=== PATIENT | female | born 1995 | race Caucasian/White ===

== ENCOUNTER → 2016-03-28 | Outpatient (CLI) | payer OTHER ==
--- NOTE | 2016-03-28 21:00 | REP ---
Clinical: Anatomical evaluation. Comparison: 01/02/2016 . Findings: Examination demonstrates a single live intrauterine in cephalic presentation. motion is identified by technologist. Placenta is noted posteriorly and grade one without evidence for placenta previa or abruption. Amniotic fluid volume is normal. Cervix measures 4.2 cm in length and appears closed. Nuchal cord cannot be excluded Gestational age by LMP 32 weeks 6 days with HILL 05/17/2016 . Gestational age by current measurements 35 weeks 3 days with HILL 04/29/2016 . Amniotic fluid index equals 14.4 cm (8.3 - 24.5) FHR equals 133 beats per minute. BPD 9.0 36 weeks 4 days HC 32.8 37 weeks 2 days AC 32.8 36 weeks 5 days FL 6.5 33 weeks 3 days HL 5.7 32 weeks 6 days HC/AC ratio 1.00 Estimated weight 2813 grams ( greater than 97th percentile). Anatomical assessment demonstrates normal structures including cranium, choroid plexus, cavum, cerebellum/posterior fossa, facial features, lungs, four-chamber heart/ventricular outflow tracts, diaphragm, stomach, cord insertion/three-vessel cord, kidneys/bladder, and extremities. Impression: Single live advanced gestation demonstrating greater than expected interval growth. Anatomical assessment is normal. Signed by Dick Infante MD 03/28/2016 08:52 P
== END ==
LOC: M RAD 13:47
PROVIDERS: ATTEND Advanced Practice Midwife
DX: O26.843 Uterine size-date discrepancy, third trimester (principal)

== ENCOUNTER → 2016-04-23 | Outpatient (REF) | payer OTHER | LOC: M LAB REF 17:14 | PROVIDERS: ATTEND Advanced Practice Midwife | DX: Z34.83 Encounter for supervision of other normal pregnancy, third trimester (principal) ==

== ENCOUNTER → 2016-04-25 | Outpatient (CLI) | payer OTHER ==
--- NOTE | 2016-04-26 04:07 | REP ---
Clinical: Growth evaluation. Comparison: 03/28/2016 . Findings: Examination demonstrates a single live intrauterine in cephalic presentation. motion is identified by technologist. Placenta is noted posteriorly and grade II without evidence for placenta previa or abruption. Amniotic fluid volume is normal. Nuchal cord cannot be excluded. Gestational age by LMP 36 weeks 6 days with HILL 05/17/2016 . Gestational age by current measurements 39 weeks 0 days with HILL 05/02/2016 . FHR equals 131 beats per minute. BPD 9.5 cm 38 weeks 6 days HC 34.5 cm 39 weeks 6 days AC 37.9 cm 41 weeks 6 days FL 7.0 cm 35 weeks 6 days HL 6.7 cm 38 weeks 5 days HC/AC ratio 0.91 Estimated weight 3978 grams (> 97% based on age by LMP). Amniotic fluid index equals 13.0 cm. Umbilical cord SD ratio equals 2.06. Anatomical assessment is limited due to age, but small scrotal hydroceles cannot be excluded. Impression: 1. Single live advanced gestation in cephalic presentation demonstrating greater than expected growth based on age by LMP. 2. Nuchal cord cannot be excluded. 3. Small scrotal hydroceles cannot be excluded and may warrant follow-up examination Signed by Dick Infante MD 04/26/2016 03:59 A
== END ==
LOC: M RAD 15:34
PROVIDERS: ATTEND Obstetrics & Gynecology
DX: O26.843 Uterine size-date discrepancy, third trimester (principal)

== ENCOUNTER 2016-05-10 16:52 | Inpatient (IN) | payer MEDICAID, OTHER ==
[~2016-05-10] VITALS: Ht 160 cm; Wt 104.0 kg
[2016-05-10 17:06] VITALS: BP 136/86
[2016-05-10] MEDS ORDERED: PRENTAB9 PO (17:11)
[2016-05-10] MEDS ORDERED: LACTATED RINGER'S 1000 ML IV STA (17:34)
[2016-05-10] MEDS ORDERED: PROMETHAZINE INJ 25 MG/ML VIAL (J2550) IV PRN (17:45)
[2016-05-10] MEDS ORDERED: BUTORPHANOL 2 MG/ML INJ (J0595) IV PRN (17:45)
--- NOTE | 2016-05-10 17:57 | HPE ---
DATE OF ADMISSION: 05/10/2016 HISTORY OF PRESENT ILLNESS: A 20-year-old 1, estimated date of delivery 05/17/2016, here at 39 weeks for elective induction of labor for suspected macrosomia. Denies regular contractions, loss of fluid or bleeding. Fetus is active. Last normal menstrual period 08/11/2015, for estimated date of delivery ([facility]) 05/17/2016. Sonogram at 11 weeks confirmed her date. Anatomy scan within normal limits. Growth sonogram on April 25 showed estimated weight 3978 grams greater than 97th percentile. ALLERGIES: No known drug allergies. MEDICAL-SURGICAL HISTORY: Polycystic ovary syndrome (PCOS) FAMILY HISTORY: Diabetes, hypertension, varicosities and thyroid dysfunction. SOCIAL HISTORY: Single. Father of the baby and family supportive. Denies tobacco, alcohol, drugs or abuse. OBJECTIVE: Prepregnancy weight 185, total weight gain 59 pounds. O negative, antibody negative, received RhoGAM, rubella immune, VDRL, hepatitis B, hepatitis C, HIV, gonorrhea and Chlamydia all negative. One-hour glucose was 83. Group B strep is negative. PHYSICAL EXAMINATION: VITAL SIGNS: Stable. GENERAL: No apparent distress. CARDIAC: Heart rate is regular. LUNGS: Respirations are easy. ABDOMEN: Soft, gravid, longitudinal lie. Rare contractions. heart 145, moderate variability with accelerations. Cervix is 2 cm, 50% effaced, minus three, soft, cephalic. ASSESSMENT: Primipara at term, suspected macrosomia for induction of labor, category one tracing. PLAN: Admit per consult, misoprostol cervical ripening, labor ad bel.
[2016-05-10] MEDS ORDERED: miSOPROStol 50 MCG 1/2 TAB (S0191) PO SCH (18:00)
[2016-05-10 18:36] LABS: MEAN CORPUSCULAR HEMOGLOBIN 27.4 pg (27.0-33.0); MEAN CORPUSCULAR HGB CONC 33.7 g/dl (32.0-36.5); MEAN CORPUSCULAR VOLUME 81.3 fl (80.0-96.0); RED CELL DISTRIBUTION WIDTH 15.2 % (11.5-14.5); WHITE BLOOD COUNT 10.9 K/mm3 (4.0-10.0)
[2016-05-10 18:37] VITALS: BP 128/82
[2016-05-10 19:26] LABS: ALT/SGPT 11 U/L (12-78); AST/SGOT 31 U/L (15-37); BILIRUBIN,TOTAL 0.2 MG/DL (0.2-1.0); CREATININE FOR GFR 0.69 MG/DL (0.55-1.02); URIC ACID 4.3 MG/DL (2.6-6.0)
[2016-05-10 20:03] VITALS: BP 115/65
[2016-05-10] MEDS ORDERED: hydrOXYzine 50 MG TAB PO SCH (21:00)
[2016-05-10 21:15] VITALS: BP 122/70
[2016-05-10] MEDS: LR 1,000 ML IV SCH (22:33)
[2016-05-10] MEDS ORDERED: OXYTOCIN DRIP 30 UNITS in APPROPRIATE DILUENT 1 EA IV SCH (22:45)
[2016-05-11] VITALS (28 sets, daily range): BP systolic 104–159; BP diastolic 55–92
[2016-05-11] MEDS ORDERED: FENTANYL 2MCG/ML ROPIVACAINE 0.2% NACL 250 ML CADD As Ordered ONE (00:36)
[2016-05-11] MEDS ORDERED: BUTORPHANOL 2 MG/ML INJ (J0595) IV ONE (00:45)
[2016-05-11] MEDS ORDERED: LACTATED RINGER'S 1000 ML IV PRN (02:00)
[2016-05-11] MEDS ORDERED: diphenhydrAMINE INJ 50MG/ML VIAL (J1200) IV PRN (02:00)
[2016-05-11] MEDS ORDERED: ePHEDrine SULFATE 25 MG/5 ML(5MG/ML) SYRINGE IV PRN (02:00)
[2016-05-11] MEDS ORDERED: REFRIGERATOR IV KEYS XX PRN (02:00)
[2016-05-11] MEDS ORDERED: FENTANYL/ROPIVACAINE/NACL CADD 250 ML EPIDURAL SCH (02:00)
[2016-05-11] MEDS ORDERED: EPIDURAL/PCA KEYS XX PRN (02:00)
[2016-05-11] MEDS ORDERED: ONDANSETRON 4MG/2ML VIAL (J2405) IV PRN ×3 (02:00→14:00)
[2016-05-11] MEDS ORDERED: EPIDURAL COMMENT XX SCH (02:00)
[2016-05-11] MEDS ORDERED: NALOXONE INJ 0.4 MG/1 ML VIAL (J2310) IV PRN ×3 (02:00→12:45)
[2016-05-11] MEDS: LR 1,000 ML IV SCH ×3 (06:33→21:57)
[2016-05-11] MEDS ORDERED: ACETAMINOPHEN 500 MG TAB As Ordered ONE (09:32)
[2016-05-11] MEDS ORDERED: ACETAMINOPHEN 500 MG TAB PO PRN (09:45)
[2016-05-11] MEDS ORDERED: BICITRA 30ML SOLN UDC PO ONE (11:30)
[2016-05-11] MEDS ORDERED: MORPHINE PRES-FREE INJ 10 MG/10 ML VIAL (J2274) As Ordered ONE (12:03)
[2016-05-11] MEDS ORDERED: OXYTOCIN INJ 10 UNITS/ML VIAL (J2590) As Ordered ONE ×2 (12:04→12:43)
[2016-05-11] MEDS ORDERED: SODIUM BICARBONATE 8.4% INJ 50MEQ 50 ML VIAL As Ordered ONE (12:09)
[2016-05-11] MEDS ORDERED: LIDOCAINE 2% W/EPIN INJ 20ML **PRES FREE As Ordered ONE (12:09)
[2016-05-11] MEDS ORDERED: METOCLOPRAMIDE INJ 10MG/2ML VIAL (J2765) IV PRN (12:45)
[2016-05-11] MEDS ORDERED: NALBUPHINE HCL 10 MG/ML AMP (J2300) IV PRN ×2 (12:45→14:00)
[2016-05-11] MEDS ORDERED: PHYTONADIONE 1 MG/0.5 ML SYRINGE (J3430) IM ONE (13:00)
[2016-05-11] MEDS ORDERED: HEPATITIS B VAC *BIRTH DOSE ONLY*(ENGERIX) 10 MCG/0.5 ML SYRINGE IM ONE (13:00)
[2016-05-11] MEDS ORDERED: ERYTHROMYCIN OPHTH OINT OU ONE (13:00)
[2016-05-11 13:04] LABS: CORD GAS O2 SAT A 28.6 %; CORD GAS PCO2 A 50.6 mmHg; CORD GAS PH A 7.311 UNITS; CORD GAS PO2 A 15.1 mmHg; CORD GAS SBC A 21.1 MEQ/L; CORD GAS TCO2 A 26.5 MEQ/L
[2016-05-11 13:06] LABS: CORD GAS ABE V -3.1; CORD GAS HCO3 V 22.8 MEQ/L; CORD GAS O2 SAT V 37.3 %; CORD GAS PCO2 V 43.5 mmHg; CORD GAS PH V 7.337 UNITS; CORD GAS PO2 V 17.5 mmHg; CORD GAS SBC V 20.4 MEQ/L; CORD GAS TCO2 V 24.1 MEQ/L
[2016-05-11] MEDS ORDERED: fentaNYL 100 MCG/2 ML INJECTION (J3010) As Ordered ONE (13:48)
[2016-05-11] MEDS ORDERED: MOM 30ML SUSPENSION UDC PO PRN (14:00)
[2016-05-11] MEDS ORDERED: MEASLES,MUMPS,RUBELLA VACCINE INJ (MMR-II) (90707) SC SCH (14:00)
[2016-05-11] MEDS ORDERED: MEPERIDINE INJ 25 MG/ML VIAL (J2175) IV PRN (14:00)
[2016-05-11] MEDS ORDERED: OXYTOCIN DRIP 30 UNITS in APPROPRIATE DILUENT 1 EA IV ONE (14:00)
[2016-05-11] MEDS ORDERED: fentaNYL 100 MCG/2 ML INJECTION (J3010) IV PRN (14:00)
[2016-05-11] MEDS ORDERED: KETOROLAC 30 MG/ML VIAL (J1885) IV PRN (14:00)
[2016-05-11] MEDS ORDERED: RHOGAM 300 MCG (1500 IU) INJ (J2790) IM SCH (14:00)
[2016-05-11] MEDS ORDERED: IBUPROFEN 800 MG TAB As Ordered ONE (14:11)
[2016-05-11] MEDS ORDERED: ACETAMINOPHEN 500 MG TAB PO ONE (14:15)
[2016-05-11] MEDS ORDERED: IBUPROFEN 800 MG TAB PO ONE (14:30)
[2016-05-11] MEDS ORDERED: IBUPROFEN 800 MG TAB PO SCH (14:30)
[2016-05-11] MEDS: AMPICILLIN SOD/SULBACTAM SOD 3 GM in D5W MINI-BAG PLUS 100 ML IV SCH ×2 (15:20→22:04)
--- NOTE | 2016-05-11 17:02 | RO ---
DATE OF PROCEDURE: 05/11/2016 PREPROCEDURE DIAGNOSIS: Arrest of descent. POSTPROCEDURE DIAGNOSIS: 1. Arrest of descent. 2. Chorioamnionitis. PROCEDURE: SURGEON: Dr. Joanne Og PATTERN FITTER: Stacey Lake CNM. ANESTHESIA: Epidural. ESTIMATED BLOOD LOSS: 500 mL. INTRAVENOUS FLUIDS: 1300 mL of lactated ringer solution. URINE OUTPUT: 25 mL PREOPERATIVE ANTIBIOTICS: 2 grams of Ancef. OPERATIVE FINDINGS: Live born male , scores 9 and 9, weight 9 pounds 5 ounces or 4236 grams. SPECIMENS: Cord blood, cord gases, placenta. DESCRIPTION OF PROCEDURE: After informed consent was obtained and written content was reviewed, the patient was brought to the operating room where she was prepped and draped in normal sterile fashion. A Freitas catheter had previously been placed and set to gravity. Anesthesia was then tested and deemed to adequate. A time out in the operating room was then performed identifying the patient, the procedure to be performed, as well as drug allergies. A Pfannenstiel skin incision was then made and carried down to the underlying rectus fascia. The fascia was then scored and this incision was extended bilaterally. The fascia was then dissected off the underlying rectus muscles, both superiorly and inferiorly. The rectus muscles were in the midline. The peritoneum was then entered. The vesicouterine peritoneum was then identified, tented and excised to create a bladder flap. A bladder blade was then placed to retract back the bladder. A curvilinear incision was made in the lower uterine segment. The head was then delivered through the incision with the aid of the Kiwi vacuum. The vacuum was then released followed by delivery of shoulders and corpus. Cord was clamped times two. The was taken to the warmer with a good cry. Cord gases and cord blood was obtained. The placenta was then drained and delivered grossly intact. The uterus was then exteriorized and cleared of all clots and debris. The uterus was then closed in two layers using #0 Vicryl for the first layer in a running locking fashion, followed by a second layer for imbrication in a running nonlocking fashion. The abdomen was then suctioned. The uterus was returned to the patient's abdomen. It was reinspected and noted to be hemostatic. The anterior peritoneum was then reapproximated using #3-0 Vicryl. The rectus muscles were then reapproximated using #3-0 Vicryl. The fascia was then closed using #0 Vicryl in a running nonlocking fashion. The subcutaneous tissue was then irrigated and suctioned. Subcutaneous tissue was then reapproximated using #3-0 Vicryl, several subdermal stitches were placed with #3-0 Vicryl. The skin was then closed with #4-0 Monocryl in a subcuticular fashion. The incision was then cleaned and dried. Mastisol was applied above and below the incision. Steri-Strips were applied over the incision. The incision was then dressed. The patient was then taken to recovery in stable condition. Counts were correct.
[2016-05-11] MEDS: KETOROLAC 30 MG/ML VIAL (J1885) IV SCH (22:04)
[2016-05-12] VITALS (7 sets, daily range): BP systolic 116–133; BP diastolic 59–78
[2016-05-12] MEDS ORDERED: IBUPROFEN 800 MG TAB PO SCH
[2016-05-12] MEDS: AMPICILLIN SOD/SULBACTAM SOD 3 GM in D5W MINI-BAG PLUS 100 ML IV SCH ×4 (03:00→21:47)
[2016-05-12] MEDS: KETOROLAC 30 MG/ML VIAL (J1885) IV SCH ×3 (04:00→16:27)
[2016-05-12 06:59] LABS: MEAN CORPUSCULAR HEMOGLOBIN 27.1 pg (27.0-33.0); MEAN CORPUSCULAR HGB CONC 32.6 g/dl (32.0-36.5); MEAN CORPUSCULAR VOLUME 83.1 fl (80.0-96.0); RED CELL DISTRIBUTION WIDTH 15.8 % (11.5-14.5); WHITE BLOOD COUNT 13.4 K/mm3 (4.0-10.0)
[2016-05-12] MEDS ORDERED: ADACEL/BOOSTRIX VACCINE (DIPHTH/PERTUSS/ACELL/TETANUS)0.5ML SYR (90715) IM ONE (09:00)
[2016-05-12] MEDS: PRENATAL VITAMIN TAB PO SCH (09:08)
[2016-05-12] MEDS ORDERED: ACETAMINOPHEN 500 MG TAB PO ONE (18:15)
[2016-05-12] MEDS: LR 1,000 ML IV SCH (21:57)
[2016-05-12] MEDS: DOCUSATE SODIUM 100 MG CAP PO PRN (22:46)
[2016-05-13] MEDS: IBUPROFEN 800 MG TAB PO SCH ×3 (00:33→16:25)
[2016-05-13] MEDS: PERCOCET 5MG/325MG TAB PO PRN ×3 (01:46→21:26)
[2016-05-13] MEDS: AMPICILLIN SOD/SULBACTAM SOD 3 GM in D5W MINI-BAG PLUS 100 ML IV SCH ×3 (03:22→15:07)
[2016-05-13] MEDS: LR 1,000 ML IV SCH ×2 (05:57→13:57)
[2016-05-13 05:59] VITALS: BP 121/73
[2016-05-13 08:09] LABS: BASO % 0.1 % (0.0-1.0); EOS # 0.4 K/mm3 (0.0-0.50); EOS % 2.9 % (0.0-3.0); LARGE UNSTAINED CELL # 0.2 K/mm3 (0.0-0.4); LYMPH # 1.5 K/mm3 (1.5-6.5); LYMPH % 9.3 % (24.0-44.0); MEAN CORPUSCULAR HEMOGLOBIN 27.3 pg (27.0-33.0); MEAN CORPUSCULAR HGB CONC 32.9 g/dl (32.0-36.5); MEAN CORPUSCULAR VOLUME 83.2 fl (80.0-96.0); MONO # 0.4 K/mm3 (0.0-0.8); MONO % 2.8 % (0.0-5.0); NEUTROPHILS # 12.5 K/mm3 (1.8-7.7); NEUTROPHILS % 83.8 % (36.0-66.0); PLATELET COUNT, AUTOMATED 168 k/mm3 (150-450); RED CELL DISTRIBUTION WIDTH 15.5 % (11.5-14.5); WHITE BLOOD COUNT 14.9 K/mm3 (4.0-10.0)
[2016-05-13] MEDS: PRENATAL VITAMIN TAB PO SCH (08:45)
[2016-05-13 10:00] VITALS: BP 142/90
[2016-05-13 14:07] LABS: BASO % 0.1 % (0.0-1.0); EOS # 0.3 K/mm3 (0.0-0.50); LARGE UNSTAINED CELL # 0.2 K/mm3 (0.0-0.4); LYMPH # 1.2 K/mm3 (1.5-6.5); LYMPH % 7.6 % (24.0-44.0); MEAN CORPUSCULAR HEMOGLOBIN 27.1 pg (27.0-33.0); MEAN CORPUSCULAR HGB CONC 32.7 g/dl (32.0-36.5); MEAN CORPUSCULAR VOLUME 82.8 fl (80.0-96.0); MONO # 0.3 K/mm3 (0.0-0.8); MONO % 2.2 % (0.0-5.0); NEUTROPHILS # 12.5 K/mm3 (1.8-7.7); PLATELET COUNT, AUTOMATED 187 k/mm3 (150-450); RED CELL DISTRIBUTION WIDTH 15.6 % (11.5-14.5); WHITE BLOOD COUNT 14.3 K/mm3 (4.0-10.0)
[2016-05-13 18:19] VITALS: BP 143/89
[2016-05-13] MEDS: AMPICILLIN SOD 2 GM in D5W MINI-BAG PLUS 100 ML IV SCH (18:30)
[2016-05-13] MEDS: GENTAMICIN IV SCH (20:00)
[2016-05-13] MEDS: D5W IV SCH (20:00)
[2016-05-13] MEDS: CLINDAMYCIN 900 MG in APPROPRIATE DILUENT 1 EA IV SCH (21:00)
[2016-05-13 21:52] VITALS: BP 135/71
[2016-05-14] MEDS: IBUPROFEN 800 MG TAB PO SCH ×4 (00:30→23:48)
[2016-05-14] MEDS: AMPICILLIN SOD 2 GM in D5W MINI-BAG PLUS 100 ML IV SCH ×5 (00:30→23:48)
[2016-05-14 01:51] VITALS: BP 119/68
[2016-05-14] MEDS: PERCOCET 5MG/325MG TAB PO PRN ×2 (03:30→14:34)
[2016-05-14] MEDS: CLINDAMYCIN 900 MG in APPROPRIATE DILUENT 1 EA IV SCH ×3 (05:06→20:49)
[2016-05-14 05:32] VITALS: BP 115/53
[2016-05-14] MEDS: PRENATAL VITAMIN TAB PO SCH (08:03)
[2016-05-14 14:03] VITALS: BP 136/76
[2016-05-14 18:04] VITALS: BP 120/74
[2016-05-14] MEDS: GENTAMICIN IV SCH (20:48)
[2016-05-14] MEDS: D5W IV SCH (20:48)
[2016-05-14] MEDS: DOCUSATE SODIUM 100 MG CAP PO PRN (20:49)
[2016-05-15] MEDS: PERCOCET 5MG/325MG TAB PO PRN (01:59)
[2016-05-15] MEDS: CLINDAMYCIN 900 MG in APPROPRIATE DILUENT 1 EA IV SCH (05:01)
[2016-05-15] MEDS: AMPICILLIN SOD 2 GM in D5W MINI-BAG PLUS 100 ML IV SCH (05:43)
[2016-05-15 05:49] VITALS: BP 126/76
[2016-05-15] MEDS: IBUPROFEN 800 MG TAB PO SCH (08:13)
[2016-05-15] MEDS: PRENATAL VITAMIN TAB PO SCH (08:13)
[2016-05-15] MEDS ORDERED: IBUP-1114 PO (08:23)
[2016-05-15] MEDS ORDERED: OXYC1TAB23 PO ×2 (08:24→08:26)
[2016-05-15] MEDS ORDERED: COLA100C PO (08:27)
[2016-05-15] MEDS ORDERED: MOM30SS PO (08:29)
--- NOTE | 2016-05-15 21:27 | DSES ---
DATE OF ADMISSION: 05/10/2016 DATE OF DISCHARGE: 05/15/2016 DISCHARGE DIAGNOSES: 1. Primary low transverse section for arrested descent. 2. Chorioamnionitis. PROCEDURES PERFORMED WHILE IN THE HOSPITAL: 1. Primary low transverse section. 2. Antibiotics therapy. 3. Epidural. DISCHARGE CONDITION: Stable. HISTORY/HOSPITAL COURSE: Ms. Hawkins is a 20-year-old, gravid 1 who presented for elective induction of labor at 39 weeks. She underwent induction and progressed, complete dilation. She pushed for several hours and made no further change. She underwent an uncomplicated section productive of a live born male , 5 and 9, weight was 5 pounds, 5 ounces, 4236 grams. Her estimated blood loss was 500 mL. At the time of section there was suspicion for chorioamnionitis based on maternal tachycardia, as well as the smell from the amniotic fluid. The decision was made to begin prophylactic antibiotics. Shortly after delivery she did spike an elevated temperature leading to the formal diagnosis of chorioamnionitis. She was initially started on Unisom but continued to spike temperatures. Her antibiotics were then switched to triple antibiotic therapy with clindamycin, gentamicin, and ampicillin. She remained afebrile for greater than 36 hours at which time she was discharged home in stable condition. PHYSICAL EXAMINATION ON DISCHARGE: VITAL SIGNS: Stable, she was afebrile. GENERAL APPEARANCE: Well appearing, no acute distress. ABDOMEN: Soft, nontender. Fundus, below umbilicus. Her incision was clean, dry and intact, well approximated and nonerythemic. EXTREMITIES: Negative for calf tenderness. DISCHARGE MEDICATIONS: - ibuprofen - Percocet. DISCHARGE INSTRUCTIONS: 1. She was instructed to followup in two weeks for incision check. 2. Remain on pelvic rest. 3. Report severe pain, heavy vaginal bleeding, fever or incisional issues. 4. She is currently attempting to breast feed.
== END 2016-05-15 09:30 | disposition home or self-care (01) | DRG 540 ==
LOC: M LDI 16:52 → M OBS 05-11 14:43
PROVIDERS: ADMIT Advanced Practice Midwife; ATTEND Obstetrics & Gynecology
PROC: 3E0P7GC Introduction of Other Therapeutic Substance into Female Reproductive, Via Natural or Artificial Opening (ICD-10-PCS; 2016-05-10)
PROC: 10D00Z1 Extraction of Products of Conception, Low, Open Approach (ICD-10-PCS; principal; 2016-05-11 12:33)
DX: O36.63X0 Maternal care for excessive fetal growth, third trimester, not applicable or unspecified (principal); O41.1230 Chorioamnionitis, third trimester, not applicable or unspecified; Z3A.39 39 weeks gestation of pregnancy; E28.2 Polycystic ovarian syndrome; O99.284 Endocrine, nutritional and metabolic diseases complicating childbirth; O32.4XX0 Maternal care for high head at term, not applicable or unspecified; O66.8 Other specified obstructed labor; Z37.0 Single live birth

== ENCOUNTER → 2016-06-08 | Outpatient (REF) | payer MEDICAID, OTHER ==
[~2016-06-08] MED LIST: COLA100C PO; IBUP-1114 PO; MOM30SS PO; OXYC1TAB23 PO; PRENTAB9 PO
== END ==
LOC: M LAB REF 16:49
PROVIDERS: ATTEND Advanced Practice Midwife
DX: T81.4XXD Infection following a procedure, subsequent encounter (principal)

== ENCOUNTER 2016-08-15 15:37 | Emergency (ER) | payer OTHER ==
[~2016-08-15] VITALS: Ht 160 cm; Wt 97.5 kg
[~2016-08-15 15:37] MED LIST changes: -COLA100C PO; +COLA100C3 PO
[2016-08-15] MEDS ORDERED: ZOLO25TA PO (16:01)
[2016-08-15] MEDS ORDERED: NS 500 ML IV ONE (16:45)
[2016-08-15] MEDS ORDERED: DICYCLOMINE INJ 20MG/2ML (J0500) IM ONE (16:45)
[2016-08-15 17:03] LABS: BASO % 0.6 % (0.0-1.0); EOS # 0.4 K/mm3 (0.0-0.50); EOS % 5.6 % (0.0-3.0); LARGE UNSTAINED CELL # 0.3 K/mm3 (0.0-0.4); LARGE UNSTAINED CELL % 3.6 % (0.0-4.0); LYMPH # 2.5 K/mm3 (1.5-6.5); LYMPH % 28.8 % (24.0-44.0); MEAN CORPUSCULAR HEMOGLOBIN 24.2 pg (27.0-33.0); MEAN CORPUSCULAR HGB CONC 32.1 g/dl (32.0-36.5); MEAN CORPUSCULAR VOLUME 75.4 fl (80.0-96.0); MONO # 0.3 K/mm3 (0.0-0.8); NEUTROPHILS # 4.5 K/mm3 (1.8-7.7); NEUTROPHILS % 57.4 % (36.0-66.0); PLATELET COUNT, AUTOMATED 287 k/mm3 (150-450); RED CELL DISTRIBUTION WIDTH 15.6 % (11.5-14.5); WHITE BLOOD COUNT 7.8 K/mm3 (4.0-10.0)
[2016-08-15 17:31] LABS: ALBUMIN 3.8 GM/DL (3.2-5.2); ALBUMIN/GLOBULIN RATIO 0.97 (1.00-1.93); ALKALINE PHOSPHATASE 92 U/L (45-117); ALT/SGPT 50 U/L (12-78); AMYLASE 54 U/L (25-115); ANION GAP 5 MEQ/L (8-16); AST/SGOT 28 U/L (15-37); BILIRUBIN,DIRECT < 0.1 MG/DL (0.0-0.2); BILIRUBIN,TOTAL 0.2 MG/DL (0.2-1.0); BLOOD UREA NITROGEN 15 MG/DL (7-18); CARBON DIOXIDE LEVEL 28 MEQ/L (21-32); CHLORIDE LEVEL 108 MEQ/L (98-107); CREATININE FOR GFR 0.78 MG/DL (0.55-1.02); GLUCOSE, FASTING 81 MG/DL (70-105); POTASSIUM SERUM 3.8 MEQ/L (3.5-5.1); SODIUM LEVEL 141 MEQ/L (136-145); TOTAL PROTEIN 7.7 GM/DL (6.4-8.2)
[2016-08-15] MEDS ORDERED: BENT10CA PO (17:51)
[2016-08-15 17:59] VITALS: BP 110/70
== END 2016-08-15 18:00 | disposition home or self-care (01) ==
LOC: M ED 17:53
DX: R10.10 Upper abdominal pain, unspecified (principal); R19.7 Diarrhea, unspecified

== ENCOUNTER → 2016-10-04 | Outpatient (REF) | payer OTHER ==
[~2016-10-04] MED LIST changes: +BENT10CA PO; -COLA100C3 PO; +COLA100C5 PO; +ZOLO25TA PO
== END ==
LOC: M LAB REF 17:14
PROVIDERS: ATTEND Advanced Practice Midwife
DX: Z12.4 Encounter for screening for malignant neoplasm of cervix (principal)

== ENCOUNTER → 2016-10-09 | Outpatient (CLI) | payer OTHER ==
[2016-10-09 08:26] LABS: THYROXINE (T4) 8.4 UG/DL (4.5-12.0)
[2016-10-13 08:07] LABS: INSULIN FREE 11 uU/mL (.)
== END ==
LOC: M LAB 07:11
PROVIDERS: ATTEND Advanced Practice Midwife
DX: L68.0 Hirsutism (principal)

== ENCOUNTER 2016-12-27 12:18 | Emergency (ER) | payer OTHER ==
[~2016-12-27] VITALS: Ht 160 cm; Wt 100.0 kg
[2016-12-27] MEDS ORDERED: IBUPROFEN 600 MG TAB PO ONE (16:15)
--- NOTE | 2016-12-27 17:25 | REP ---
Sacrum and coccyx: Three views. History: Pain after fall. Findings: AP and tube angled views of the sacrum and coccyx are obtained along with a lateral radiograph. These demonstrate no evidence of sacral or coccygeal fracture or displacement. Presacral space is not visibly widened. An IUD is seen just to the right of midline in the pelvis. SI joints are intact. Impression: No fracture seen. Signed by Ismael Merritt MD 12/28/2016 08:02 A
[2016-12-27 19:37] VITALS: BP 134/73
== END 2016-12-27 19:39 | disposition home or self-care (01) ==
LOC: M ED 12:18
DX: S30.0XXA Contusion of lower back and pelvis, initial encounter (principal); W01.198A Fall on same level from slipping, tripping and stumbling with subsequent striking against other object, initial encounter; Y92.89 Other specified places as the place of occurrence of the external cause; Y93.89 Activity, other specified; Y99.8 Other external cause status

== ENCOUNTER → 2018-05-13 | Outpatient (REF) | payer OTHER ==
[2018-05-13 14:17] LABS: FOLLICLE STIMULATING HORMONE 8.2 mIU/mL; FREE T4 1.11 NG/DL (0.76-1.46); LUTEINIZING HORMONE 12.8 mIU/mL; THYROID STIMULATING HORMONE 0.641 uIU/ML (0.358-3.740)
== END ==
LOC: M LABDRWAD 12:37
PROVIDERS: ATTEND Advanced Practice Midwife
DX: E28.2 Polycystic ovarian syndrome (principal)

== ENCOUNTER → 2018-05-22 | Outpatient (CLI) | payer OTHER ==
--- NOTE | 2018-05-22 10:19 | REP ---
Clinical: IUD positioning . Technique: Transabdominal pelvic ultrasound followed by transvaginal examination for better evaluation of the endometrium and adnexa with color Doppler evaluation of the ovaries. Findings: Bladder is unremarkable and measures 5.6 x 3.1 x 8.0 cm. Normal anteverted uterus measures 8.4 x 4.8 x 4.9 cm. The endometrial complex measures 4.5 mm thickness. No discrete uterine or endometrial abnormalities are appreciated. IUD identified in central satisfactory position. Bilateral ovaries are normal in appearance and vascularity without evidence for torsion. Right ovary measures 4.1 x 3.6 x 3.2 cm with 2.6 cm physiologic cyst ; R I = 0.51 . Left ovary measures 3.5 x 2.6 x 2.8 cm ; R I = 0.58 . No pelvic fluid or adnexal mass lesion . Impression: 1. normal pelvic ultrasound. 2. IUD in satisfactory position. Electronically Signed by Dick Infante MD 05/22/2018 10:11 A
== END ==
LOC: M RAD 09:01
PROVIDERS: ATTEND Advanced Practice Midwife
DX: Z30.431 Encounter for routine checking of intrauterine contraceptive device (principal)

== ENCOUNTER 2020-11-28 09:31 | Emergency (ER) | payer OTHER ==
[~2020-11-28] VITALS: Ht 160 cm; Wt 108.9 kg
[2020-11-28] MEDS ORDERED: TRI-TAB16 (09:39)
[2020-11-28] MEDS ORDERED: SPIR50TA4 PO (09:39)
[2020-11-28] MEDS ORDERED: ACETAMINOPHEN 325 MG TAB PO ONE (11:50)
[2020-11-28] MEDS ORDERED: methylPREDNISolone 125MG 2ML VIAL IV ONE (12:15)
[2020-11-28] MEDS ORDERED: NS 500 ML IV ONE (12:15)
[2020-11-28] MEDS: ALBUTEROL 90 MCG/ACT 8GM HFA INHALER INH SCH ×3 (12:35→13:57)
[2020-11-28 13:04] LABS: BASO % 0.6 % (0.0-1.0); HEMATOCRIT 45.8 % (36.0-47.0); HEMOGLOBIN 15.4 g/dl (12.0-15.5); LYMPH # 1.2 10^3/uL (1.5-5.0); LYMPH % 37.5 % (24.0-44.0); MEAN CORPUSCULAR HEMOGLOBIN 28.9 pg (27.0-33.0); MEAN CORPUSCULAR HGB CONC 33.6 g/dl (32.0-36.5); MEAN CORPUSCULAR VOLUME 86.1 fl (80.0-96.0); MONO # 0.3 10^3/uL (0.0-0.8); MONO % 9.6 % (2.0-8.0); NEUTROPHILS # 1.6 10^3/uL (1.5-8.5); PLATELET COUNT, AUTOMATED 175 10^3/uL (150-450); RED BLOOD COUNT 5.32 10^6/uL (4.00-5.40); WHITE BLOOD COUNT 3.1 10^3/uL (4.0-10.0)
--- NOTE | 2020-11-28 13:18 | REP ---
INDICATION: Covid+, eval for pneumonia. COMPARISON: None. TECHNIQUE: Upright AP portable chest image was obtained. FINDINGS: There is peripheral peribronchial consolidation in the mid and lower lung zones bilaterally this could be atelectasis but COVID related pneumonia cannot be excluded. There are no pleural effusions. The heart borders and mediastinum are normal. IMPRESSION: 1. Mid and lower lung zone peripheral consolidation which could be atelectasis but COVID related pneumonia not excluded. 2. No evidence of pleural effusion. <Electronically signed by Boubacar Delgado > 11/28/20 [id number]
[2020-11-28 13:30] LABS: BLOOD UREA NITROGEN 10 MG/DL (7-18); CALCIUM LEVEL 9.2 MG/DL (8.5-10.1); CARBON DIOXIDE LEVEL 26 MEQ/L (21-32); CHLORIDE LEVEL 103 MEQ/L (98-107); CREATININE FOR GFR 1.05 MG/DL (0.55-1.30); GLOMERULAR FILTRATION RATE > 60.0 (>60); GLUCOSE, FASTING 96 MG/DL (70-100); POTASSIUM SERUM 4.1 MEQ/L (3.5-5.1); SODIUM LEVEL 136 MEQ/L (136-145)
[2020-11-28 15:19] VITALS: BP 123/73
== END 2020-11-28 15:24 | disposition home or self-care (01) ==
LOC: M ED 09:31
DX: J98.01 Acute bronchospasm (principal); U07.1 COVID-19; J18.9 Pneumonia, unspecified organism; E28.2 Polycystic ovarian syndrome; Z79.899 Other long term (current) drug therapy
CPT/HCPCS: 71045; 80048; 85025; 94640; 94664; 96374; 99284; J2930

== ENCOUNTER 2020-11-28 15:18 | Inpatient (IN) | payer OTHER ==
[2020-11-28] VITALS (13 sets, daily range): BP systolic 103–120; BP diastolic 55–74; O2SAT 92
[~2020-11-28] VITALS: Ht 160 cm; Wt 107.8 kg
--- NOTE | 2020-11-28 14:26 | CR.PDOC ---
General Date of Consultation: Nov 28, 2020 Attending Physician: LUCY ESTRADA DO Consultation REASON FOR CONSULTATION/CHIEF COMPLAINT: Fever, cough, shortness of breath. HISTORY OF PRESENT ILLNESS: Patient is a 25-year-old female who presented to the emergency department earlier today with a chief complaint of fevers, cough, shortness of breath. Patient states she started getting sick on 11/26/2020. Patient had a 104.5 fever this morning around 3 AM. Patient has been taking Tylenol and ibuprofen alternating for the fevers. Patient has been co ughing but is not producing any phlegm. Patient is also had some mild shortness of breath especially when she exerts herself. Patient does not have any known exposures to COVID-19. In the emergency department, patient was found to be positive for COVID-19 on Emilie antigen testing. Patient was offered monoclonal antibodies and accepted. Patient was seen in consultation for monoclonal antibodies today. ALLERGIES: Please see below. HOME MEDICATIONS: Please see below. PAST MEDICAL HISTORY: 1. Class III obesity. 2. PCOS. PAST SURGICAL HISTORY: 1. C-sections x2 FAMILY HISTORY: Patient's family history includes diabetes and hypertension in her father SOCIAL HISTORY: Patient currently lives at home with her parents and her children. Patient denies smoking, drinking alcohol, or illicit drug use. Patient works as a daycare provider REVIEW OF SYSTEMS: General: Patient reports fevers as above HEENT: Patient denies headaches Cardiovascular: Patient denies chest pain Respiratory: Patient reports shortness of breath, cough as above GI: Patient denies abdominal pain, nausea, vomiting, diarrhea : Patient denies increased frequency or pain with urination Extremities: Patient denies swelling or pain in extremities Neurological: Patient denies numbness or tingling in legs Skin: Patient denies any new rashes or lesions. Hematologic: Patient denies any easy bruising. Lymphatic: Patient denies any lumps lumps or bumps in neck, axilla, or groin PHYSICAL EXAMINATION: VITAL SIGNS: Please see below. General: Alert and oriented female patient who was sitting up in bed when I walked in the room. Patient not appear to be in acute distress HEENT: Normocephalic, atraumatic, moist mucous membranes. Neck: No lymphadenopathy or thyromegaly Cardiac: Regular rate and rhythm, no murmurs, normal S1, normal S2 Pulm: Clear to auscultation bilaterally. No wheezes, rhonchi, rales Abd: Nondistended, nontender to palpation, normal bowel sounds Ext: No edema bilateral lower extremities Neuro: Patient was able to move all 4 extremities on command and reported equal sensation light touch in all 4 extremities. Skin: Skin of the head, neck, upper and lower extremities was examined did not show any evidence of rash or wounds. LABORATORY DATA: Please see below. ASSESSMENT: 25-year-old female who is COVID-19 positive who presents to the emergency room for increasing shortness of breath who was offered and accepted monoclonal antibodies for COVID-19 Plan: 1. COVID-19. Patient does not meet criteria for inpatient admission at this time. Patient does meet criteria for monoclonal antibody infusion as the patient is obese with a BMI of 42.5. Risk and benefits of monoclonal antibodies were discussed with the patient. Patient signed consent form. I did advise the patient that she should follow the advice of [facility] and consequently information and that she should also receive Covid vaccination wit hin 90 days of her positive test. Patient will be admitted to an outpatient bed for monoclonal antibodies and discharged once the infusion is complete. If the patient has any adverse effects or events, please contact hospitalist. 2. Class III obesity. This puts the patient at high risk for hospitalization due to COVID-19 infection. Patient will be admitted to an outpatient bed for monoclonal antibodies as above. This is also complicating patient's care. Allergies Coded Allergies: No Known Allergies (Verified , 09/28/02) Home Medications Scheduled Spironolactone (Spironolactone) 50 Mg Tablet, 1 TAB PO DAILY, (Reported) Miscellaneous Medications Norgestimate-Ethinyl Estradiol (Tri-Linyah Tablet) 1 Each Tablet, (Reported) LUCY ESTRADA DO Nov 28, 2020 14:26
[~2020-11-28 15:18] MED LIST changes: +ALBUTEROL 90 MCG/ACT 8GM HFA INHALER INH PRN; +ALBUTEROL SULFATE 2.5 MG/0.5 ML INH NEB SOLN INH PRN; +CASIRIVIMAB/IMDEVIMAB 1,200 MG in NS 250 ML IV ONE; +EPINEPHrine INJ 1 MG/ML 1ML AMP IM PRN; +NS 1,000 ML IV SCH; +SPIR50TA4 PO; +TRI-TAB16; +diphenhydrAMINE 50MG/ML VIAL (J1200) IV PRN; +methylPREDNISolone 125MG 2ML VIAL IV PRN
[2020-11-28 19:57] LABS: INR 1.02; PARTIAL THROMBOPLASTIN TIME 34.2 SECONDS (25.9-37.0); PROTHROMBIN TIME 13.8 SECONDS (12.7-14.5)
[2020-11-28 20:00] LABS: D-DIMER QUANT 515.22 ng/ml (<500)
[2020-11-28 20:13] LABS: ALBUMIN 3.1 GM/DL (3.2-5.2); ALT/SGPT 37 U/L (12-78); BILIRUBIN,DIRECT 0.1 MG/DL (0.0-0.2); BILIRUBIN,TOTAL 0.4 MG/DL (0.2-1.0); C REACTIVE PROTEIN QUANTITATIV 2.97 MG/DL (0.00-0.30); CPK CREATINE PHOSPHOKINASE 259 U/L (26-192); FERRITIN 166 NG/ML (8-252); LDH LACTATE DEHYDROGENASE 261 U/L (84-246); TOTAL PROTEIN 6.9 GM/DL (6.4-8.2); TROPONIN I < 0.02 NG/ML (< 0.10)
[2020-11-28] MEDS ORDERED: REMDESIVIR 200 MG in NS 250 ML IV ONE (21:00)
[2020-11-28] MEDS: dexameTHASONE 4 MG/ML 1ML VIAL (J1100 PER 1MG) IV SCH (21:03)
[2020-11-28] MEDS ORDERED: SODIUM CHLORIDE 0.9% INJ 10 ML SYR IV ONE (23:00)
[2020-11-29 04:49] VITALS: BP 103/76
[2020-11-29 05:08] LABS: BASO % 0.1 % (0.0-1.0); HEMATOCRIT 44.3 % (36.0-47.0); HEMOGLOBIN 15.1 g/dl (12.0-15.5); LYMPH # 0.9 10^3/uL (1.5-5.0); LYMPH % 13.6 % (24.0-44.0); MEAN CORPUSCULAR HEMOGLOBIN 29.1 pg (27.0-33.0); MEAN CORPUSCULAR HGB CONC 34.1 g/dl (32.0-36.5); MEAN CORPUSCULAR VOLUME 85.4 fl (80.0-96.0); MONO # 0.3 10^3/uL (0.0-0.8); MONO % 4.3 % (2.0-8.0); NEUTROPHILS # 5.5 10^3/uL (1.5-8.5); NEUTROPHILS % 81.7 % (36.0-66.0); PLATELET COUNT, AUTOMATED 173 10^3/uL (150-450); RED BLOOD COUNT 5.19 10^6/uL (4.00-5.40); WHITE BLOOD COUNT 6.8 10^3/uL (4.0-10.0)
[2020-11-29 05:29] LABS: BLOOD UREA NITROGEN 9 MG/DL (7-18); CALCIUM LEVEL 8.9 MG/DL (8.5-10.1); CARBON DIOXIDE LEVEL 26 MEQ/L (21-32); CHLORIDE LEVEL 107 MEQ/L (98-107); CREATININE FOR GFR 0.76 MG/DL (0.55-1.30); GLOMERULAR FILTRATION RATE > 60.0 (>60); GLUCOSE, FASTING 123 MG/DL (70-100); MAGNESIUM LEVEL 2.3 MG/DL (1.8-2.4); POTASSIUM SERUM 4.2 MEQ/L (3.5-5.1); SODIUM LEVEL 137 MEQ/L (136-145)
[2020-11-29 08:00] VITALS: BP 110/80
[2020-11-29] MEDS ORDERED: cefTRIAXone SOD 2 GM in D5W MINI-BAG PLUS 50 ML IV SCH (08:00)
[2020-11-29] MEDS: ENOXAPARIN 40MG/0.4ML SYRINGE (J1650 PER 10MG) SC SCH (08:47)
[2020-11-29] MEDS ORDERED: AZITHROMYCIN INJ 500 MG, VIAL MATE ADAPTER 1 EACH in NS 250 ML IV SCH (09:00)
--- NOTE | 2020-11-29 10:45 | IPNPDOC ---
Text Note Date of Service The patient was seen on 11/29/20. NOTE Subjective: Patient is a 25-year-old female presented to the emergency departm ent yesterday with chief complaint of fevers, cough, shortness of breath. Patient was diagnosed with COVID-19. Patient did have an elevated fever yesterday of 104.5. Patient initially did not meet criteria for admission and was admitted to an outpatient bed for monoclonal antibodies. During the infusion, the patient's oxygen saturation continued to drop. When the patient got up to walk to the bathroom, her oxygen saturation dropped into the 80s. Patient need to be placed on oxygen after finishing her monoclonal infusion so the decision was made to admit the patient for COVID-19. Patient was admitted last night and had to be placed on up to 5 L of oxygen overnight. Patient was started on remdesivir and dexamethasone as she was requiring oxygen therapy. Patient is feeling ill today but is feeling slightly better than she was yesterday. Patient is still coughing but is nonproductive. Patient does report shortness of breath when she does exert herself. Review of systems: General: Patient denies fevers HEENT: Patient denies headaches Cardiovascular: Patient denies chest pain Respiratory: Patient reports shortness of breath with exertion and a nonproductive cough GI: Patient denies abdominal pain, nausea, vomiting, diarrhea : Patient denies increased frequency or pain with urination Extremities: Patient denies swelling or pain in extremities Neurological: Patient denies numbness or tingling in legs Physical exam: Vitals: See below General: Alert and oriented female patient with nasal cannula oxygen in place when I walked in the room. Patient not appear to be in any acute distress. HEENT: Normocephalic, atraumatic, moist mucous membranes. Neck: No lymphadenopathy or thyromegaly Cardiac: Regular rate and rhythm, no murmurs, normal S1, normal S2 Pulm: Clear to auscultation bilaterally. No wheezes, rhonchi, rales Abd: Nondistended, nontender to palpation, normal bowel sounds Ext: No edema bilateral lower extremities Labs: See below Imaging: No new imaging has been performed. Assessment/plan: 25-year-old female who is Covid positive who initially was admitted for monoclonal antibodies who became hypoxic after the infusion and was admitted for COVID-19. 1. COVID-19. Patient did meet admission criteria as she had an exertional pulse ox that was 88% that took time to recover and required oxygen therapy. Patient was as low as 84 according to documentation overnight. We will continue with remdesivir and dexamethasone at this time. Patient will continue with oxygen therapy. Patient was given a dose of ceftriaxone azithromycin until her procalcitonin came back negative. Antibiotics have been discontinued at this time. We will continue to monitor the patient. 2. Hypoxia. This is secondary to COVID-19. Patient will continue on oxygen wi ll wean down as the patient improves. 3. Class III obesity. This puts the patient at high risk and this is complicating the patient's care. DVT Prophylaxis: Lovenox Disposition: Pending clinical improvement Jonatan CRAIN, I+O VSJonatan I+O Laboratory Tests 11/29/20 04:49 Vital Signs Date Time Temp Pulse Resp B/P (MAP) Pulse Ox O2 Delivery O2 Flow Rate FiO2 11/29/20 04:49 98.3 82 22 103/76 (85) 93 Nasal Cannula 5.0 I&O- Last 24 Hours up to 6 AM 11/29/20 06:00 Intake Total 1475 ml Balance 1475 ml LUCY ESTRADA DO Nov 29, 2020 10:45
[2020-11-29] MEDS: ACETAMINOPHEN TAB 650MG DOSE (2X325MG) PO PRN ×2 (11:59→23:54)
[2020-11-29 14:00] VITALS: BP 113/82
[2020-11-29] MEDS ORDERED: SODIUM CHLORIDE 0.9% INJ 10 ML SYR IV SCH ×2 (19:20→22:00)
[2020-11-29 20:00] VITALS: BP 97/61; O2SAT 97
[2020-11-29] MEDS: REMDESIVIR 100 MG in NS 250 ML IV SCH (20:31)
[2020-11-29] MEDS: dexameTHASONE 4 MG/ML 1ML VIAL (J1100 PER 1MG) IV SCH (21:36)
[2020-11-29 22:00] VITALS: BP 98/62
[2020-11-30] VITALS (21 sets, daily range): BP systolic 98–110; BP diastolic 58–76; O2SAT 93–97
[2020-11-30 05:59] LABS: HEMATOCRIT 44.2 % (36.0-47.0); HEMOGLOBIN 14.6 g/dl (12.0-15.5); MEAN CORPUSCULAR HEMOGLOBIN 28.5 pg (27.0-33.0); MEAN CORPUSCULAR VOLUME 86.3 fl (80.0-96.0); PLATELET COUNT, AUTOMATED 194 10^3/uL (150-450); RED BLOOD COUNT 5.12 10^6/uL (4.00-5.40); WHITE BLOOD COUNT 5.2 10^3/uL (4.0-10.0)
[2020-11-30 06:10] LABS: INR 1.01; PARTIAL THROMBOPLASTIN TIME 31.7 SECONDS (25.9-37.0); PROTHROMBIN TIME 13.7 SECONDS (12.7-14.5)
[2020-11-30 06:33] LABS: ALBUMIN 2.6 GM/DL (3.2-5.2); ALT/SGPT 64 U/L (12-78); BILIRUBIN,DIRECT 0.1 MG/DL (0.0-0.2); BILIRUBIN,TOTAL 0.3 MG/DL (0.2-1.0); BLOOD UREA NITROGEN 14 MG/DL (7-18); CARBON DIOXIDE LEVEL 27 MEQ/L (21-32); CHLORIDE LEVEL 108 MEQ/L (98-107); CPK CREATINE PHOSPHOKINASE 165 U/L (26-192); CREATININE FOR GFR 0.64 MG/DL (0.55-1.30); FERRITIN 179 NG/ML (8-252); GLOMERULAR FILTRATION RATE > 60.0 (>60); GLUCOSE, FASTING 119 MG/DL (70-100); LDH LACTATE DEHYDROGENASE 266 U/L (84-246); MAGNESIUM LEVEL 2.4 MG/DL (1.8-2.4); NT-PRO BNP 51 PG/ML (<125); POTASSIUM SERUM 4.6 MEQ/L (3.5-5.1); SODIUM LEVEL 139 MEQ/L (136-145); TOTAL PROTEIN 6.9 GM/DL (6.4-8.2); TROPONIN I < 0.02 NG/ML (< 0.10)
[2020-11-30 07:24] LABS: ATYPICAL LYMPH 4 % (0-5); LYMPHOCYTES 22 % (16-44); MONOCYTES 1 % (0-5); NEUTROPHILS 69 % (28-66); PLATELET ESTIMATE NORMAL (NORMAL)
[2020-11-30 07:25] LABS: ANISOCYTOSIS 1+
[2020-11-30] MEDS: ENOXAPARIN 40MG/0.4ML SYRINGE (J1650 PER 10MG) SC SCH (08:53)
--- NOTE | 2020-11-30 13:19 | IPNPDOC ---
Text Note Date of Service The patient was seen on 11/30/20. NOTE Subjective: Patient is a 25-year-old female presented the emergency department 2 days ago with chief complaint of fevers and shortness of breath. Patient was diagnosed with COVID-19. Patient was going to just get antibody infusion as the patient did not meet admission criteria while in the emergency department however, throughout the afternoon, patient began getting worse. Patient became more hypoxic and was requiring oxygen therapy by the end of her monoclonal infusion so the decision was made to admit the patient. Patient states she is feeling mildly better but is short of breath especially when she exerts herself. Review of systems: General: Patient denies fevers HEENT: Patient denies headaches Cardiovascular: Patient denies chest pain Respiratory: Patient reports shortness of breath with exertion GI: Patient denies abdominal pain, nausea, vomiting, diarrhea : Patient denies increased frequency or pain with urination Extremities: Patient denies swelling or pain in extremities Neurological: Patient denies numbness or tingling in legs Physical exam: Vitals: See below General: Alert and oriented female patient with nasal cannula oxygen in place when I walked in the room. Patient did not appear to be in acute distress HEENT: Normocephalic, atraumatic, moist mucous membranes. Neck: No lymphadenopathy or thyromegaly Cardiac: Regular rate and rhythm, no murmurs, normal S1, normal S2 Pulm: Clear to auscultation bilaterally. No wheezes, rhonchi, rales Abd: Nondistended, nontender to palpation, normal bowel sounds Ext: No edema bilateral lower extremities Labs: See below Imaging: No new imaging has been performed Assessment/plan: 25-year-old female was Covid positive who initially omitted for monoclonal antibodies became hypoxic after the infusion and was admitted for COVID-19. 1. COVID-19. Patient met admission criteria as she had exertional pulse ox of 80% at that time recover and required oxygen therapy. Patient was as low as 84% according to documentation the night prior. Patient is now on remdesivir and dexamethasone at this time. Patient will continue with her oxygen therapy. Ceftriaxone and azithromycin were given but her procalcitonin came back negative so these have been discontinued. 2. Hypoxia. Secondary to COVID-19. Patient will continue on oxygen and is currently on 2 L. 3. Class III obesity. Please patient high risk for COVID-19 hospitalization and is complicating the patient's care DVT Prophylaxis: Lovenox Disposition: Pending clinical improvement VSJonatan, I+O VS, Jonatan, I+O Laboratory Tests 11/30/20 05:40 Vital Signs Date Time Temp Pulse Resp B/P (MAP) Pulse Ox O2 Delivery O2 Flow Rate FiO2 11/30/20 13:16 96.7 77 18 99/58 (72) 94 Nasal Cannula 2.0 I&O- Last 24 Hours up to 6 AM 11/30/20 06:00 Intake Total 2375 ml Balance 2375 ml LUCY ESTRADA DO Nov 30, 2020 13:19
[2020-11-30] MEDS: dexameTHASONE 4 MG/ML 1ML VIAL (J1100 PER 1MG) IV SCH (20:10)
[2020-11-30] MEDS: REMDESIVIR 100 MG in NS 250 ML IV SCH (20:45)
[2020-12-01] VITALS: BP 110/76; O2SAT 94
[2020-12-01 04:00] VITALS: BP 95/53; O2SAT 88
[2020-12-01 06:38] LABS: HEMATOCRIT 44.4 % (36.0-47.0); HEMOGLOBIN 14.9 g/dl (12.0-15.5); MEAN CORPUSCULAR HEMOGLOBIN 28.7 pg (27.0-33.0); MEAN CORPUSCULAR HGB CONC 33.6 g/dl (32.0-36.5); MEAN CORPUSCULAR VOLUME 85.5 fl (80.0-96.0); PLATELET COUNT, AUTOMATED 219 10^3/uL (150-450); RED BLOOD COUNT 5.19 10^6/uL (4.00-5.40); WHITE BLOOD COUNT 5.2 10^3/uL (4.0-10.0)
[2020-12-01 07:08] LABS: BLOOD UREA NITROGEN 12 MG/DL (7-18); CALCIUM LEVEL 9.5 MG/DL (8.5-10.1); CARBON DIOXIDE LEVEL 27 MEQ/L (21-32); CHLORIDE LEVEL 107 MEQ/L (98-107); CREATININE FOR GFR 0.61 MG/DL (0.55-1.30); GLOMERULAR FILTRATION RATE > 60.0 (>60); GLUCOSE, FASTING 139 MG/DL (70-100); MAGNESIUM LEVEL 2.3 MG/DL (1.8-2.4); POTASSIUM SERUM 4.5 MEQ/L (3.5-5.1); SODIUM LEVEL 138 MEQ/L (136-145)
[2020-12-01 07:10] LABS: ATYPICAL LYMPH 4 % (0-5); LYMPHOCYTES 24 % (16-44); MONOCYTES 2 % (0-5); NEUTROPHILS 69 % (28-66); PLATELET ESTIMATE NORMAL (NORMAL)
[2020-12-01 08:00] VITALS: BP 99/65; O2SAT 93
[2020-12-01] MEDS: ENOXAPARIN 40MG/0.4ML SYRINGE (J1650 PER 10MG) SC SCH (08:19)
[2020-12-01] MEDS ORDERED: BENZONATATE 100 MG CAP PO PRN (09:40)
--- NOTE | 2020-12-01 09:49 | IPNPDOC ---
Text Note Date of Service The patient was seen on 12/01/20. NOTE S: This is a 25 y/o female with no significant pmh who reported to our ED on 11/29 with a cc of fevers and sob and was subsequently tested positive for COVID19. Patient has remained persistently hypoxic since admission without supplemental O2. Patient to receive day four of remdesevir/dexamethasone protocol today. As of my exam of patient, she states that she is feeling somewhat better today, but complains of persistent sob and cough. Denies any new symptoms, please refer to ROS. ROS: Gen: denies fevers/chills HEENT: denies uri sx CV: denies chest pain, palpitatinos Pulm: admits to sob and nonproductive cough GI: Denies abd pain, n/v/d/c : Denies dysuria Extremities: Denies pedal edema Neuro: Denies syncope, dizziness O: PE: Vitals: Please see below. General: This is a pleasant 25 y/o female who is alert and oriented to all questioning. She does not appear to be in any acute distress. HEENT: No mass or lesion. Nasal canula in place. EOMI. No scleral icterus. Nares patent. Oral mucosa moist. CV: Regular rate, rhythm. No murmurs, rubs, gallops Pulm: Good air flow b/l. No wheezing, rales, rhonchi GI: Soft, nontender. Non distended Extremities: No pedal edema appreciated. Pulses intact. No overlying skin changes. Neuro: Speech clear. A+Ox3. No focal deficits Psych: Mood and affect appear appropriate. Labs: See below Imaging: None performed today A: This is a 25 y/o female with no significant pmh who reported to our ED on 11/29 with a cc of fevers and sob and was subsequently tested positive for COVID19. Patient has remained persistently hypoxic since admission without supplemental O2. Patient to receive day four of remdesevir/dexamethasone protocol today. P: 1. COVID19 - nursing staff attempted to wean pt off o2 however patient rapidly dropped to 88% on RA without exertion - will continue supplemental o2 titrated >90 - patient to receive day four of remdesevir/dexamethasone protocol today - will add tessalon perles for cough relief - maintain on continuous pulse ox - tylenol for fevers 2. Obesity - complicated care DVT prophylaxis - lovenox VS,Fishbone, I+O VS, Fishbone, I+O Laboratory Tests 12/01/20 06:26 Vital Signs Date Time Temp Pulse Resp B/P (MAP) Pulse Ox O2 Delivery O2 Flow Rate FiO2 12/01/20 08:00 96.1 61 18 99/65 (76) 94 Nasal Cannula 2.0 I&O- Last 24 Hours up to 6 AM 12/01/20 06:00 Intake Total 1390 ml Balance 1390 ml EVELIA VAZQUEZ Dec 01, 2020 09:49
[2020-12-01 12:00] VITALS: O2SAT 93
[2020-12-01 16:00] VITALS: BP 97/62; O2SAT 93
[2020-12-01] MEDS: dexameTHASONE 4 MG/ML 1ML VIAL (J1100 PER 1MG) IV SCH (20:36)
[2020-12-01] MEDS: REMDESIVIR 100 MG in NS 250 ML IV SCH (20:41)
[2020-12-02] VITALS (11 sets, daily range): BP systolic 101–112; BP diastolic 60–76; O2SAT 90–94
[2020-12-02 06:08] LABS: BASO % 0.5 % (0.0-1.0); HEMATOCRIT 45.5 % (36.0-47.0); HEMOGLOBIN 15.2 g/dl (12.0-15.5); LYMPH % 22.6 % (24.0-44.0); MEAN CORPUSCULAR HEMOGLOBIN 29.1 pg (27.0-33.0); MEAN CORPUSCULAR HGB CONC 33.4 g/dl (32.0-36.5); MONO # 0.1 10^3/uL (0.0-0.8); MONO % 3.2 % (2.0-8.0); NEUTROPHILS # 3.2 10^3/uL (1.5-8.5); NEUTROPHILS % 73.2 % (36.0-66.0); PLATELET COUNT, AUTOMATED 237 10^3/uL (150-450); RED BLOOD COUNT 5.23 10^6/uL (4.00-5.40); WHITE BLOOD COUNT 4.3 10^3/uL (4.0-10.0)
[2020-12-02 06:19] LABS: INR 0.98; PROTHROMBIN TIME 13.4 SECONDS (12.7-14.5)
[2020-12-02 06:20] LABS: PARTIAL THROMBOPLASTIN TIME 29.6 SECONDS (25.9-37.0)
[2020-12-02 06:35] LABS: ALBUMIN 2.7 GM/DL (3.2-5.2); ALT/SGPT 43 U/L (12-78); BILIRUBIN,DIRECT < 0.1 MG/DL (0.0-0.2); BILIRUBIN,TOTAL 0.3 MG/DL (0.2-1.0); BLOOD UREA NITROGEN 11 MG/DL (7-18); CALCIUM LEVEL 9.5 MG/DL (8.5-10.1); CARBON DIOXIDE LEVEL 27 MEQ/L (21-32); CHLORIDE LEVEL 108 MEQ/L (98-107); CPK CREATINE PHOSPHOKINASE 42 U/L (26-192); CREATININE FOR GFR 0.64 MG/DL (0.55-1.30); FERRITIN 116 NG/ML (8-252); GLOMERULAR FILTRATION RATE > 60.0 (>60); GLUCOSE, FASTING 148 MG/DL (70-100); LDH LACTATE DEHYDROGENASE 207 U/L (84-246); MAGNESIUM LEVEL 2.1 MG/DL (1.8-2.4); NT-PRO BNP 38 PG/ML (<125); POTASSIUM SERUM 4.5 MEQ/L (3.5-5.1); SODIUM LEVEL 139 MEQ/L (136-145); TOTAL PROTEIN 6.7 GM/DL (6.4-8.2); TROPONIN I < 0.02 NG/ML (< 0.10)
[2020-12-02] MEDS: ENOXAPARIN 40MG/0.4ML SYRINGE (J1650 PER 10MG) SC SCH (09:07)
--- NOTE | 2020-12-02 11:44 | IPN ---
PROGRESS NOTE DATE: 12/02/2020 SUBJECTIVE: Jackie is a 25-year-old unvaccinated COVID pneumonia admission, hypoxic, requiring admission, improved to the point where she can be moved out of ICU today. OBJECTIVE: Afebrile. Vital signs are stable. Her saturation is 93% on 1 liter. She is alert and conversant. Lungs: Scattered rhonchi and wheezes. Abdomen is soft, obese, soft, nontender, no masses. No peripheral edema. LABORATORY DATA: CBC is unremarkable. Electrolytes are unremarkable. IMPRESSION: COVID pneumonia in an unvaccinated 25-year-old. She has been moved out of the ICU, we are trying to wean her oxygen, she on day #5 of Remdesivir and Dexamethasone. I expect she will be stable for discharge tomorrow.
[2020-12-02] MEDS: dexameTHASONE 4 MG/ML 1ML VIAL (J1100 PER 1MG) IV SCH (21:13)
[2020-12-02] MEDS: REMDESIVIR 100 MG in NS 250 ML IV SCH (21:13)
[2020-12-03] VITALS (12 sets, daily range): BP systolic 108; BP diastolic 59; O2SAT 92–94
[2020-12-03] MEDS: ENOXAPARIN 40MG/0.4ML SYRINGE (J1650 PER 10MG) SC SCH (08:15)
[2020-12-03 09:06] LABS: BASO % 0.3 % (0.0-1.0); HEMATOCRIT 46.4 % (36.0-47.0); HEMOGLOBIN 15.3 g/dl (12.0-15.5); LYMPH # 1.3 10^3/uL (1.5-5.0); LYMPH % 20.7 % (24.0-44.0); MEAN CORPUSCULAR HEMOGLOBIN 28.5 pg (27.0-33.0); MEAN CORPUSCULAR VOLUME 86.6 fl (80.0-96.0); MONO # 0.3 10^3/uL (0.0-0.8); MONO % 4.4 % (2.0-8.0); NEUTROPHILS # 4.5 10^3/uL (1.5-8.5); NEUTROPHILS % 73.9 % (36.0-66.0); PLATELET COUNT, AUTOMATED 291 10^3/uL (150-450); RED BLOOD COUNT 5.36 10^6/uL (4.00-5.40); WHITE BLOOD COUNT 6.1 10^3/uL (4.0-10.0)
[2020-12-03 09:37] LABS: BLOOD UREA NITROGEN 13 MG/DL (7-18); CALCIUM LEVEL 9.4 MG/DL (8.5-10.1); CARBON DIOXIDE LEVEL 28 MEQ/L (21-32); CHLORIDE LEVEL 107 MEQ/L (98-107); CREATININE FOR GFR 0.63 MG/DL (0.55-1.30); GLOMERULAR FILTRATION RATE > 60.0 (>60); GLUCOSE, FASTING 119 MG/DL (70-100); MAGNESIUM LEVEL 2.3 MG/DL (1.8-2.4); POTASSIUM SERUM 4.7 MEQ/L (3.5-5.1); SODIUM LEVEL 139 MEQ/L (136-145)
--- NOTE | 2020-12-03 10:14 | DSES ---
DISCHARGE SUMMARY DATE OF ADMISSION: 11/28/2020 DATE OF DISCHARGE: 12/03/2020 PRINCIPAL DIAGNOSIS: COVID pneumonia. HISTORY: Jackie Hawkins is a 25-year-old unvaccinated individual who contracted COVID, had a positive COVID test on 11/28/20. She was sent for monoclonal antibodies. Her risk factor being obesity. After monoclonal antibodies, she desaturated. Chest x-ray showed pneumonia and she was admitted. HOSPITAL COURSE: She was admitted to ICU and eventually transferred to the floor. Treated with remdesivir and dexamethasone. She had some gradual improvement of her oxygenation and today she is weaned down to room air with O2 saturation 95%. She has completed five days of each of her prescribed medications. DISPOSITION: Discharged home in improved and stable condition. She is to follow up with her primary care provider in a week. I strongly advised her to receive one of the messenger RNA COVID vaccinations within the next 30 to 90 days. She did receive monoclonal antibodies, so it would be reasonable to favor the latter of that interval. DISCHARGE INSTRUCTIONS: Activities as tolerated. Diet is regular. She was cautioned about the increased risk of post COVID symptoms including shortness of breath, fatigue, increased frequency of type 2 diabetes and chronic kidney disease and this will need to be monitored by her primary care provider. At the time of this dictation, there are no pending labs.
== END 2020-12-03 11:01 | disposition home or self-care (01) | DRG 137 ==
LOC: M 4MAIN 15:18 → M OPCLI4 15:18 → M ICU 18:20 → M 4MAIN 12-02 08:31
PROVIDERS: ADMIT Family Medicine; ATTEND Family Medicine
PROC: XW033E5 Introduction of Remdesivir Anti-infective into Peripheral Vein, Percutaneous Approach, New Technology Group 5 (ICD-10-PCS; principal; 2020-11-28)
PROC: 3E0333Z Introduction of Anti-inflammatory into Peripheral Vein, Percutaneous Approach (ICD-10-PCS; 2020-11-28)
DX: U07.1 COVID-19 (principal); J12.82 Pneumonia due to coronavirus disease 2019; E66.01 Morbid (severe) obesity due to excess calories; Z68.41 Body mass index [BMI] 40.0-44.9, adult; E28.2 Polycystic ovarian syndrome; R09.02 Hypoxemia; Z79.899 Other long term (current) drug therapy

== ENCOUNTER → 2021-10-03 | Outpatient (CLI) | payer OTHER ==
[~2021-10-03] MED LIST changes: -ALBUTEROL 90 MCG/ACT 8GM HFA INHALER INH PRN; -ALBUTEROL SULFATE 2.5 MG/0.5 ML INH NEB SOLN INH PRN; -CASIRIVIMAB/IMDEVIMAB 1,200 MG in NS 250 ML IV ONE; -EPINEPHrine INJ 1 MG/ML 1ML AMP IM PRN; -NS 1,000 ML IV SCH; -diphenhydrAMINE 50MG/ML VIAL (J1200) IV PRN; -methylPREDNISolone 125MG 2ML VIAL IV PRN
== END ==
LOC: M WUC 10:22
PROVIDERS: ATTEND Student in an Organized Health Care Education/Training Program
DX: M79.641 Pain in right hand (principal)

== ENCOUNTER → 2022-10-25 | Outpatient (REF) | payer OTHER ==
[2022-10-25 17:35] LABS: BASO # 0.1 10^3/uL (0.0-0.2); BASO % 0.8 % (0.0-1.0); EOS # 0.5 10^3/uL (0.0-0.5); EOS % 5.8 % (0.0-3.0); HEMATOCRIT 43.6 % (36.0-47.0); HEMOGLOBIN 14.6 g/dl (12.0-15.5); LYMPH # 3.3 10^3/uL (1.5-5.0); LYMPH % 42.6 % (24.0-44.0); MEAN CORPUSCULAR HEMOGLOBIN 29.6 pg (27.0-33.0); MEAN CORPUSCULAR HGB CONC 33.5 g/dl (32.0-36.5); MEAN CORPUSCULAR VOLUME 88.3 fl (80.0-96.0); MONO # 0.4 10^3/uL (0.0-0.8); MONO % 5.3 % (2.0-8.0); NEUTROPHILS # 3.5 10^3/uL (1.5-8.5); NEUTROPHILS % 45.4 % (36.0-66.0); PLATELET COUNT, AUTOMATED 280 10^3/uL (150-450); RED BLOOD COUNT 4.94 10^6/uL (4.00-5.40); WHITE BLOOD COUNT 7.7 10^3/uL (4.0-10.0)
[2022-10-25 18:13] LABS: ALBUMIN 3.6 G/DL (3.2-5.2); ALKALINE PHOSPHATASE 50 U/L (46-116); ALT/SGPT 22 U/L (7.0-40); AST/SGOT 11 U/L (<34); BILIRUBIN,TOTAL 0.3 MG/DL (0.3-1.2); BLOOD UREA NITROGEN 7 MG/DL (9-23); CALCIUM LEVEL 9.8 MG/DL (8.5-10.1); CARBON DIOXIDE LEVEL 25 MMOL/L (20-31); CHLORIDE LEVEL 108 MMOL/L (98-107); CHOLESTEROL LEVEL 170 MG/DL (<200); CREATININE FOR GFR 0.71 MG/DL (0.55-1.30); GLOMERULAR FILTRATION RATE > 60.0 (>60); GLUCOSE, FASTING 108 MG/DL (60-100); HDL CHOLESTEROL 58.6 MG/DL (>40); NON-HDL-C 111.4 MG/DL; POTASSIUM SERUM 4.1 MMOL/L (3.5-5.1); SODIUM LEVEL 141 MMOL/L (136-145); TRIGLYCERIDES LEVEL 157 MG/DL (<150)
[2022-10-25 18:14] LABS: THYROID STIMULATING HORMONE 1.224 uIU/ML (0.55-4.78)
[2022-10-25 18:15] LABS: TOTAL 25(OH) VITAMIN D 36.4 NG/ML (20.0-100.0)
[2022-10-25 18:36] LABS: HEMOGLOBIN A1c 4.6 % (4.0-6.0)
== END ==
LOC: M LAB REF 16:48
PROVIDERS: ATTEND Nurse Practitioner Family
DX: Z13.228 Encounter for screening for other metabolic disorders (principal)

== ENCOUNTER → 2023-08-21 | Outpatient (REF) | payer OTHER, BC | LOC: M LAB REF 10:15 | PROVIDERS: ATTEND Nurse Practitioner Family | DX: R30.0 Dysuria (principal) ==

== ENCOUNTER → 2023-10-20 | Outpatient (REF) | payer BC | LOC: M WUC 18:53 | PROVIDERS: ATTEND Student in an Organized Health Care Education/Training Program | DX: R30.0 Dysuria (principal) ==

== ENCOUNTER → 2024-04-22 | Outpatient (REF) | payer BC, OTHER ==
[2024-04-22 18:10] LABS: BASO # 0.1 10^3/uL (0.0-0.2); BASO % 0.7 % (0.0-1.0); EOS # 0.5 10^3/uL (0.0-0.5); HEMATOCRIT 46.9 % (36.0-47.0); HEMOGLOBIN 15.9 g/dl (12.0-15.5); LYMPH # 3.6 10^3/uL (1.5-5.0); LYMPH % 40.9 % (24.0-44.0); MEAN CORPUSCULAR HEMOGLOBIN 29.6 pg (27.0-33.0); MEAN CORPUSCULAR HGB CONC 33.9 g/dl (32.0-36.5); MEAN CORPUSCULAR VOLUME 87.2 fl (80.0-96.0); MONO # 0.6 10^3/uL (0.0-0.8); MONO % 7.1 % (2.0-8.0); NEUTROPHILS % 45.1 % (36.0-66.0); PLATELET COUNT, AUTOMATED 309 10^3/uL (150-450); RED BLOOD COUNT 5.38 10^6/uL (4.00-5.40); WHITE BLOOD COUNT 8.8 10^3/uL (4.0-10.0)
[2024-04-22 18:32] LABS: HEMOGLOBIN A1c 4.8 % (4.0-6.0)
[2024-04-22 18:42] LABS: ALBUMIN 4.1 G/DL (3.2-5.2); ALKALINE PHOSPHATASE 63 U/L (35-104); ALT/SGPT 37 U/L (7.0-40); AST/SGOT 25 U/L (<34); BILIRUBIN,TOTAL 0.5 MG/DL (0.3-1.2); BLOOD UREA NITROGEN 12 MG/DL (9-23); CALCIUM LEVEL 10.2 MG/DL (8.5-10.1); CARBON DIOXIDE LEVEL 29 MMOL/L (20-31); CHLORIDE LEVEL 102 MMOL/L (98-107); CHOLESTEROL LEVEL 219 MG/DL (<200); CREATININE FOR GFR 0.77 MG/DL (0.55-1.30); GLOMERULAR FILTRATION RATE > 60.0 (>60); GLUCOSE, FASTING 82 MG/DL (60-100); HDL CHOLESTEROL 42.9 MG/DL (>40); LDL CHOLESTEROL 116.5 MG/DL (<100); NON-HDL-C 176.1 MG/DL; POTASSIUM SERUM 4.6 MMOL/L (3.5-5.1); SODIUM LEVEL 142 MMOL/L (136-145); THYROID STIMULATING HORMONE 1.704 uIU/ML (0.55-4.78); TOTAL 25(OH) VITAMIN D 13.1 NG/ML (20.0-100.0); TOTAL PROTEIN 7.7 G/DL (5.7-8.2); TRIGLYCERIDES LEVEL 298 MG/DL (<150)
== END ==
LOC: M LAB REF 16:33
PROVIDERS: ATTEND Nurse Practitioner Family
DX: E66.01 Morbid (severe) obesity due to excess calories (principal); E55.9 Vitamin D deficiency, unspecified; E28.2 Polycystic ovarian syndrome

== ENCOUNTER → 2024-06-09 | Outpatient (REF) | payer OTHER ==
[2024-06-09 18:32] LABS: ALBUMIN 4.1 G/DL (3.2-5.2); ALKALINE PHOSPHATASE 64 U/L (35-104); ALT/SGPT 36 U/L (7.0-40); AST/SGOT 24 U/L (<34); BILIRUBIN,TOTAL 0.4 MG/DL (0.3-1.2); BLOOD UREA NITROGEN 10 MG/DL (9-23); CALCIUM LEVEL 10.1 MG/DL (8.5-10.1); CARBON DIOXIDE LEVEL 29 MMOL/L (20-31); CHLORIDE LEVEL 102 MMOL/L (98-107); CREATININE FOR GFR 0.89 MG/DL (0.55-1.30); GLOMERULAR FILTRATION RATE > 60.0 (>60); GLUCOSE, FASTING 76 MG/DL (60-100); POTASSIUM SERUM 4.4 MMOL/L (3.5-5.1); SODIUM LEVEL 139 MMOL/L (136-145); TOTAL PROTEIN 7.6 G/DL (5.7-8.2)
== END ==
LOC: M LAB REF 17:52
PROVIDERS: ATTEND Nurse Practitioner Family
DX: E28.2 Polycystic ovarian syndrome (principal)

== ENCOUNTER → 2024-10-02 | Outpatient (REF) | payer OTHER ==
[2024-10-02 18:51] LABS: IRON (FE) 87.0 UG/DL (50-170); PERCENT SATURATION 27.1 % (13.2-45.0)
== END ==
LOC: M LAB REF 17:15
PROVIDERS: ATTEND Nurse Practitioner Family
DX: R53.83 Other fatigue (principal)

== ENCOUNTER → 2024-11-03 | Outpatient (CLI) | payer OTHER | LOC: M SLEEP HO 11:24 | PROVIDERS: ATTEND Nurse Practitioner Family | DX: G47.33 Obstructive sleep apnea (adult) (pediatric) (principal); R53.83 Other fatigue ==